=== PATIENT | female | born 2005 | race Caucasian/White ===

== ENCOUNTER 2024-12-27 20:33 | Emergency (ER) | payer OTHER, SELFPAY ==
[2024-12-27 20:34] VITALS: BP 135/65
--- NOTE | 2024-12-27 20:52 | ED.GENMED ---
History of Present Illness
General
Chief Complaint: Musculo-Skeletal Complaint
Source: patient and significant other
Exam Limitations: none
Time Seen by Provider: 12/27/24 20:39
History of Present Illness
History of Present Illness:
19-year-old female presents after she dropped a 25 pound weight on her left foot today around 130. She states she is able to walk it just hurts to walk. The pain is at the first MTP joint of the left foot. She denies any other injuries. Denies
ankle injury.
Past History
Past History
ED Past Medical History: Other (Pelvic inflammatory disease but tested negative for STIs)
ED Past Surgical History: None
Social History
Tobacco: Non-smoker
Alcohol: None
Drug: None
Phy Exam
Physical Exam
Physical Exam:
CONSTITUTIONAL Vital signs reviewed, Patient alert and oriented to person, place and time. Well-appearing
HEAD atraumatic, normocephalic.
EYES eyelids normal to inspection, Extraocular muscles intact, Conjunctiva normal, Sclera normal.
NECK normal range of motion, Trachea midline, no jugular venous distention.
RESP no respiratory distress
BACK No obvious deformities
UPPER EXTREMITY Gross Range of motion normal, gross motor strength normal
LOWER EXTREMITY Gross range of motion normal, Gross motor strength normal, small area of ecchymosis noted at the first MTP joint of the left foot. She has tenderness in this region. There is no midfoot tenderness. There is no ankle tenderness.
No calcaneal tenderness. Distal end of the first digit and toenail are intact and nontender. Minimal swelling
NEURO Speech normal, No focal motor deficits include, [place] coma scale 15, Memory normal, Cranial Nerves intact to screening exam.
SKIN Skin warm, dry, and normal in color.
PSYCHIATRIC Patient oriented to person place and time, Normal affect.
Course
Orders/Labs/Results
Orders:
Orders
12/27/24 20:36
CR Foot - Left Min 3 Views Urgent
Comment:
Reason For Exam: Dropped weight on foot
Vital Signs
Initial and Last Documented VS:
Initial Vital Signs
Temp Pulse Resp BP Pulse Ox
97.7 F 84 16 135/65 99
12/27/24 20:34 12/27/24 20:34 12/27/24 20:34 12/27/24 20:34 12/27/24 20:34
Last Documented Vital Signs
Temp Pulse Resp BP Pulse Ox
97.7 F 84 16 135/65 99
12/27/24 20:34 12/27/24 20:34 12/27/24 20:34 12/27/24 20:34 12/27/24 20:34
MDM/Problems Addressed
Differential Diagnosis Includes:
Phalanx fracture, Lisfranc fracture, contusion
MDM/Problems Addressed:
Foot contusion
*Radiology
Radiology exam reviewed: all reviewed NAD by ED Provider
*Pulse Oximetry
Patient hypoxic: no
*Critical Care Note
Total Time (30-74mins, 75-104mins- exclusive of procedures): Not Applicable
Data Reviewed
Source: patient
Patient Management
Escalation/DeEscalation of care consider admission/obs:
No midfoot tenderness or imaging findings concerning for Lisfranc. Apply postop shoe and recommended rest, ice, elevation and ibuprofen as needed
ED Attending Note
-
Portions of this chart may have been created with voice recognition software.� Occasional wrong word or��sound alike� substitutions may have occurred due to the inherent limitations of voice recognition software.
Discharge Plan
Departure
Patient Disposition: Home (Routine Discharge)
Date of Disposition: 12/27/24
Time of Disposition: 20:52
Patient with high blood pressure during this ER visit?: No
Discharge Problem:
Foot injury
Instructions: Contusion
Prescriptions:
No Action
Children's Jelly Vitamin From [facility]
1 tab PO DAILY
nitrofurantoin monohyd/m-cryst [Macrobid] 100 mg capsule
100 mg PO BID Qty: 10 0RF
Referrals:
Madeleine Garvin CRNP [Family Provider] -
Activity Restrictions/Additional Instructions:
Please rest, ice and elevate your injured foot. Return immediately for worsening pain, difficulty walking or any other concerns. If symptoms persist after 10 days, please see your PCP for repeat x-rays
Discharge Date and Time
Print Language: INDONESIAN
== END 2024-12-27 21:16 | disposition home or self-care (01) ==
LOC: EMR 20:33
PROVIDERS: EMERGENCY PHYSICIAN Emergency Medicine; FAMILY PHYSICIAN Nurse Practitioner Family
DX: S99.922A Unspecified injury of left foot, initial encounter (principal); W20.8XXA Other cause of strike by thrown, projected or falling object, initial encounter
CPT/HCPCS: 99283; 73630